=== PATIENT | male | born 1980 | race Caucasian/White ===

== ENCOUNTER 2016-08-19 05:14 | Day surgery (SDC) | payer BC ==
[2016-08-18 09:48] LABS: BASOPHILS 0.4 % (0.0-2.0); HEMOGLOBIN 15.7 g/dL (13.5-17.5); IMMATURE GRANULOCYTES 0.2 % (0-5); LYMPHOCYTES 30.6 % (15-50); MCH 33.1 pg (26.0-34.0); MCHC 34.9 g/dL (31.0-37.0); MCV 94.7 fL (80.0-100.0); MEAN PLATELET VOLUME 9.8 fL (7.4-10.4); NEUTROPHILS 51.8 % (40-80); PLATELET COUNT 174 10x3/uL (130-400); RBC 4.75 10x6/uL (4.20-6.10); RDW 12.3 % (11.5-14.5); WBC 5.7 10x3/uL (4.8-10.8)
[2016-08-18 10:09] LABS: CALC OSMOLALITY 280 mosm/kg (275-300); CALCIUM 8.8 mg/dL (8.5-10.1); CARBON DIOXIDE 29.3 mmol/L (21.0-32.0); CHLORIDE - SERUM 105 mmol/L (98-107); GLUCOSE 98 mg/dL (74-106); POTASSIUM - SERUM 4.3 mmol/L (3.5-5.1); SODIUM 141 mmol/L (136-145); UREA NITROGEN 12 mg/dL (7-18); eGFR NON AFRICAN AMERICAN 89 mL/min (90-120)
[~2016-08-19] VITALS: Ht 175.3 cm; Wt 74.8 kg
[~2016-08-19 05:14] MED LIST: FLUTICASONE PRO16 GM NS; VALTREX500 MG PO
[2016-08-19 06:41] VITALS: BP 122/75; Ht 175.3 cm; Wt 74.8 kg
[2016-08-19] MEDS ORDERED: FAMOTIDINE10 MG PO (06:41)
[2016-08-19] MEDS ORDERED: HYDROCODONE-APA1 TAB PO (08:41)
--- NOTE | 2016-08-19 09:36 | NUR ---
0920 BACK FROM RIGHT INGUINAL HERNIA REPAIR. AWAKE DENIES PAIN RT GROIN DRESSING C/D/I NO BLEEDING ICE PACK APPLIED. ON V/S MONITOR.ICE CHIPS SERVED.C/L IN REACH.
--- NOTE | 2016-08-19 10:31 | NUR ---
1020 PAIN LEVEL IS A 2 DENIES THE NEED FOR ANY PAIN MEDICATION RT GROIN DRESSING C/D/I NO BLEEDING ICE PACK ON. NO URGE TO URINATE YET LR OPEN.
--- NOTE | 2016-08-19 11:09 | NUR ---
1100 UP WITH ASSISTANCE AND TRIED TO URINATE BUT UNABLE TO DO SO. SECOND BAG OF LR HUNG AND INFUSING VIA RT ARM NO REDNESS OR SWELLING RT GROIN ICE PACK ON NO BLEEDING. REVIEWED DISCHARGE INSTRUCTIONS SCRIPT FOLLOW UP APPOINTMENT AND VERBALLY UNDERSTANDS. OFFERED PAIN MEDS BUT DENIES THE NEED FOR PAIN MEDS AT THIS TIME.
--- NOTE | 2016-08-19 11:24 | NUR ---
1112 SOME NAUSEA ZOFRAN GIVEN.
--- NOTE | 2016-08-19 11:59 | NUR ---
1150 NAUSEA BETTER TAKING IN A SPRITE FLUIDS LR INFUSING. ICE PACK TO RT GROIN.
--- NOTE | 2016-08-19 12:36 | NUR ---
1233 MEDICATED FOR PAIN FOR THE ROAD VOIDED AND DISCHARGED TO HOME VIA WHEELCHAIR.
--- NOTE | 2016-09-24 13:21 | OP ---
PATIENT NAME: PIETER VINCENT MEDICAL RECORD: [id number] :76 LOCATION:[facility] ADMISSION DATE: SURGEON: PHILIPPE MAYERS MD DATE OF OPERATION: 08/19/2016 PREOPERATIVE DIAGNOSIS: Right inguinal hernia. POSTOPERATIVE DIAGNOSIS: Right inguinal hernia. PROCEDURE: Right inguinal hernia repair. SURGEON: Philippe Mayers MD REPORT OF PROCEDURE: The patient's right groin was prepped and draped in sterile fashion. An oblique incision was made above the inguinal ligament. Electrocautery was used to dissect through the subcutaneous tissues and the external oblique fascia was opened up to the external ring using Metzenbaum scissors. A Mangham was placed around the spermatic cord. The ilioinguinal nerve was found and high ligated. We inspected and saw there was a small indirect hernia defect. A window was made in the base of the inguinal floor and the preperitoneal space of Retzius was opened up in all directions. A medium PHS mesh was inserted and sutured down on all 4 sides using interrupted 0 Vicryls. The wound was irrigated out with normal saline. The external oblique fascia was closed with running 2-0 Vicryl, Alex's was closed with interrupted 3-0 Vicryls and the skin was closed with running subcutaneous 5-0 Monocryl. COMPLICATIONS: None. CONDITION: Stable. ANESTHESIA: General endotracheal and local. BLOOD LOSS: Minimal. TRANSINT:[id number] Voice Confirmation ID: [id number] DOCUMENT ID: [id number] PHILIPPE MAYERS MD at 1321 CC: [id number] DICTATION DATE: 09/07/161733 ELECTRONIC INTELLIGENCE OFFICER: 09/07/162021 [facility] 08/19/[address] [address]
== END 2016-08-19 12:38 | disposition home or self-care (01) ==
LOC: D.OPS 05:14 → D.PAN 07:30 → D.OPS 07:30
PROVIDERS: Surgery
DX: K40.90 Unilateral inguinal hernia, without obstruction or gangrene, not specified as recurrent (principal); K21.9 Gastro-esophageal reflux disease without esophagitis; Z86.19 Personal history of other infectious and parasitic diseases